=== PATIENT | female | born 1960 | race Caucasian/White ===

== ENCOUNTER 2019-10-09 15:17 | Emergency (ER) | payer MEDICARE, MEDICAID, OTHER ==
--- OUTSIDE RECORDS SUMMARY | 2019-10-09 15:29 | XMS REPORT | Continuity of Care Document ---
:1960 External Reference #:[id number] Author Name Tiffanie Moody M.D., R.D. (transmitted by agent of provider Jessa Hughes) Address [address] [place] [address] Care Team Providers Name Role Phone Harry Kim MD - Ophthalmology Care Team Information Supervisor Curing Room [facility] - Care Team Information Supervisor Curing Room Neurology Cody Clemente - Counseling Care Team Information Supervisor Curing Room [phone] [facility] Neurology Dept - Care Team Information Supervisor Curing Room [phone] Neurology Nae Roger - Drive In Teller Care Team Information Supervisor Curing Room [phone] Jessa Rodriguez MD - Ophthalmology Care Team Information Supervisor Curing Room Problems Active Problems Provider Date Cobalamin deficiency MARIOLA Jade Onset: 08/24/2013 Abnormal results function studies of MARIOLA Quigley Onset: 08/24/2013 central nervous system Concussion injury of brain MARIOLA Quigley Onset: 08/24/2013 Neck pain MARIOLA Quigley Onset: 08/24/2013 Social History Type Date Description Comments Sex Unknown Tobacco Use Start: Unknown Never Smoked Cigarettes ETOH Use Denies alcohol use Recreational Drug Use Denies Drug Use Tobacco Use Start: Unknown Patient has never smoked Smoking Status Reviewed: 09/28/19 Patient has never smoked Enjoy Exercising Enjoys exercising As of 10/2016, does not exercise regularly lately. As of 09/2019, she is walking 50-60 minutes daily. Allergies, Adverse Reactions, Alerts Description No Known Drug Allergies Medications Active Medications SIG Qnty Indications Ordering Date Provider Blood Glucose use as directed 1units E16.2 Tiffanie Grayauley, 05/17/2017 Monitoring System dx: e16.2 M.D., R.D. W/Device Kit Blood Glucose Test use as directed 100units Tiffanie Burnsley, 05/17/2017 to test blood M.D., R.D. Strips glucose twice daily dx: e16.2 Lancets Ultra Thin use to test blood 100units Tiffanie Fransisco, 05/17/2017 30G sugars twice M.D., R.D. Thin 30G Misc daily and as needed dx: e16.2 Acupuncture for vertigo, H81.10 Tiffanie Moody, 04/30/2017 tinnitus and neck M.Silviano., R.D. pain and headaches Vitamin D3 Tiffanie Fransisco, 09/16/2016 1000Unit [place].Jorge Luis, R.D. Chewtabs Acupuncture For ptsd and Tiffanie Moody, 09/16/2016 headaches from M.Silviano., R.D. Traumatic Brain Injury Acupuncture For Tiffanie Burnsley, 09/25/2015 Headache And Back M.Jorge Luis, R.D. Pain Vitamin B-12 Shawnti R. 12/24/2012 2500mcg Storm, RESIDENT ASSOCIATE-C Tablets Sub Multi For Her Shawnti R. 12/23/2012 Storm, RESIDENT ASSOCIATE-C Capsules [place] 3 1 po bid Shawnti R. 12/23/2012 1000mg Storm, RESIDENT ASSOCIATE-C Capsules Echinacea 1 drop every day Unknown Astragalus 1 ml drop by Unknown mouth every day Immunizations CPT Code Status Date Vaccine Lot # [id number] Given 08/08/2019 Influenza Virus Vaccine, Quadrivalent, 3 Yr > [id number] Quad, Preserv Free 34782 Given 06/07/2006 Tetanus [id number] 96133 Given 04/19/1997 Tetanus [id number] Refused 04/28/2019 Influenza Virus Vaccine, Quadrivalent, 3 Yr > Quad , Preserv Free [id number] Refused 06/09/2017 Influenza Virus Vaccine, Quadrivalent, 3 Yr > Quad , Preserv Free [id number] Refused 10/23/2016 Influenza Virus Vaccine, Quadrivalent, 3 Yr > Quad , Preserv Free Vital Signs Date Vital Result Comment 10/05/2019 10:22am Weight 188.00 lb Weight 85.277 kg BP Systolic 100 mmHg BP Diastolic 70 mmHg Heart Rate 93 /min Body Temperature 98.0 F Respiratory Rate 16 /min O2 % BldC Oximetry 98 % 09/28/2019 10:23am Weight 185.00 lb Weight 83.916 kg BP Systolic 102 mmHg BP Diastolic 60 mmHg Heart Rate 89 /min Body Temperature 96.6 F Respiratory Rate 16 /min Height 67.5 inches 5'7.50" BMI (Body Mass Index) 28.5 kg/m2 O2 % BldC Oximetry 100 % Results Test Acquired Date Facility Test Result H/L Range Note CBC Auto 09/28/2019 [facility] White Blood 3.6 10^3/ uL Normal 3.5-10.8 Diff [phone] Count Red Blood Count 4.49 10^6/uL Normal 3.70-4.87 Hemoglobin 13.3 g/dL Normal 12.0-16.0 Hematocrit 40 % Normal 35-47 Mean Corpuscular Volume 89 fL Normal 80-97 Mean Corpuscular Hemoglobin 30 pg Normal 27-31 Mean Corpuscular HGB Conc 33 g/dL Normal 31-36 Red Cell Distribution Width 13 % Normal 10-15 Platelet Count 193 10^3/uL Normal 150-450 Mean Platelet Volume 10.5 fL High 7.4-10.4 Abs Neutrophils 2.1 10^3/uL Normal 1.5-7.7 Abs Lymphocytes 1.0 10^3/uL Normal 1.0-4.8 Abs Monocytes 0.3 10^3/uL Normal 0-0.8 Abs Eosinophils 0.1 10^3/uL Normal 0-0.6 Abs Basophils 0.0 10^3/uL Normal 0-0.2 Abs Nucleated RBC 0.0 10^3/uL Granulocyte % 59.0 % Lymphocyte % 28.9 % Monocyte % 8.8 % Eosinophil % 2.3 % Basophil % 1.0 % Nucleated Red Blood Cells % 0.2 Lipid Profile 09/28/2019 [facility] Triglycerides 79 mg/dL 1 (Trig/Chol/HDL) [phone] Cholesterol 248 mg/dL 2 HDL Cholesterol 59.9 mg/dL 3 LDL Cholesterol 172 mg/dL 4 Comp Metabolic 09/28/2019 [facility] Sodium 141 mmol/ L Normal 135-145 Panel [phone] Potassium 4.4 mmol/L Normal 3.5-5.0 Chloride 105 mmol/L Normal 101-111 Co2 Carbon Dioxide 29 mmol/L Normal 22-32 Anion Gap 7 mmol/L Normal 2-11 Glucose 83 mg/dL Normal 70-100 Blood Urea Nitrogen 10 mg/dL Normal 6-24 Creatinine 1.06 mg/dL High 0.51-0.95 BUN/Creatinine Ratio 9.4 Normal 8-20 Calcium 9.3 mg/dL Normal 8.6-10.3 Total Protein 7.1 g/dL Normal 6.4-8.9 Albumin 4.6 g/dL Normal 3.2-5.2 Globulin 2.5 g/dL Normal 2-4 Albumin/Globulin Ratio 1.8 Normal 1-3 Total Bilirubin 0.50 mg/dL Normal 0.2-1.0 Alkaline Phosphatase 87 U/L Normal 34-104 Alt 11 U/L Normal 7-52 Ast 15 U/L Normal 13-39 Egfr Non- 53.1 >60 Egfr 64.2 >60 5 Laboratory test 09/28/2019 [facility] Vitamin B12 377 pg/mL Normal 180-914 6 finding [phone] Vitamin D Total 25(Oh) 24.3 ng/mL Normal 20-50 7 Food Allergy 04/14/2019 [facility] Egg White <0.35 kU /L 8 Panel [phone] Allergen IgE [place] Allergen IgE 1.03 kU/L 9 Egg Yolk Allergen IgE <0.35 kU/L 10 Cow's Milk Allergen IgE <0.35 kU/L 11 Peanut Allergen IgE 1.48 kU/L 12 Soybean Allergen IgE 1.00 kU/L 13 Wheat Allergen IgE 1.17 kU/L 14 Laboratory test 04/14/2019 [facility] Rast [place] 1.18 kU/L 15 finding [phone] Seed Rast Sesame Seed 1.46 kU/L 16 Miscellaneous Test See Comment 17 Laboratory test finding 04/10/2019 In House Lab Lead low [phone] Desirable: <150 Borderline High: 150-199 High: 200-499 Very High: >500 2 Desirable: <200 Borderline High: 200-239 High: >239 3 Low: <40 Desirable: 40-60 High: >60 4 Desirable: <100 Near Optimal: 100-129 Borderline High: 130-159 High: 160-189 Very High: >189 5 Because ethnic data is not always readily available, this report includes an eGFR for both -Americans and non- Americans. The National Kidney Disease Education Program (NKDEP) does not endorse the use of the MDRD equation for patients that are not between the ages of 18 and 70, are , have extremes of body size, muscle mass, or nutritional status, or are non- or non-. According to the National Kidney Foundation, irrespective of diagnosis, the stage of the disease is based on the level of kidney function: Stage Description GFR(mL/min/1.73 m(2)) 1 Kidney damage with normal or decreased GFR 90 2 Kidney damage with mild decrease in GFR 60-89 3 Moderate decrease in GFR 30-59 4 Severe decrease in GFR 15-29 5 Kidney failure <15 (or dialysis) 6 Normal Range 180 to 914 Indeterminate Range 145 to 180 Deficient Range <145 7 Total 25-Hydroxyvitamin D2 and D3 (25-OH-VitD) <10 ng/mL (severe deficiency) 10-19 ng/mL (mild to moderate deficiency) 20-50 ng/mL (optimum levels) 51-80 ng/mL (increased risk of hypercalciuria) >80 ng/mL (toxicity possible) 8 Class 0 (Negative <0.35) 9 Class 2 (Positive 0.70-3.49) 10 Class 0 (Negative <0.35) 11 Class 0 (Negative <0.35) 12 Class 2 (Positive 0.70-3.49) 13 Class 2 (Positive 0.70-3.49) 14 Class 2 (Positive 0.70-3.49) Test Performed by: [place] [address] [facility]: Cody Brar M.D. Ph.D.; CLIA# [id number] 15 Class 2 (Positive 0.70-3.49) Test Performed by: [place] [address] [facility]: Cody Brar M.D. Ph.D.; CLIA# [id number] 16 Class 2 (Positive 0.70-3.49) Test Performed by: [facility] [place] [address] Manager [facility]: Cody Brar M.D. Ph.D.; CLIA# [id number] 17 Test Result Flag Unit RefValue Food-Grain Panel 1.19 kU/L Class 2 (Positive 0.70-3.49) ADDITIONAL INFORMATION Food - Grain Panel: Wheat [place] Barley Rice Test Performed by: [facility] [place] [address] Manager [facility]: Cody Brar M.D. Ph.D.; CLIA# [id number] Procedures Description No Information Available Medical Devices Description No Information Available Encounters Type Date Location Provider Dx Diagnosis Office Visit 10/05/2019 Charles Moody, E78.5 Hyperlipidemia, 10:15a Cyril, R.DSaurabh unspecified R79.89 Other specified abnormal findings of blood chemistry Z91.018 Allergy to other foods Office Visit 09/28/2019 10:15a Charles Moody Z00.00 Encntr for Cyril, R.DSaurabh general adult medical exam w/o abnormal findings R20.0 Anesthesia of skin D51.9 Vitamin B12 deficiency anemia, unspecified E55.9 Vitamin D deficiency, unspecified Office Visit 04/28/2019 1:45p Charles Moody Z91.018 Allergy to Cyril R.DSaurabh other foods R09.81 Nasal congestion R19.7 Diarrhea, unspecified Office Visit 04/14/2019 10:15a Charles Moody R09.81 Nasal congestion Cyril, R.DSaurabh R19.7 Diarrhea, unspecified R42 Dizziness and giddiness Assessments Date Code Description Provider 10/05/2019 E78.5 Hyperlipidemia, unspecified Tiffanie Moody M.D., R.D. 10/05/2019 R79.89 Other specified abnormal findings of Tiffanie Moody M.D. , R.D. blood chemistry 10/05/2019 Z91.018 Allergy to other foods Tiffanie Moody M.D., R.D. 09/28/2019 Z00.00 Encounter for general adult medical Tiffanie Moody M.D., R.D. examination without abnormal findings 09/28/2019 R20.0 Anesthesia of skin Tiffanie Moody M.D., R.D. 09/28/2019 D51.9 Vitamin B12 deficiency anemia, Tiffanie Moody M.D., R.D. unspecified 09/28/2019 E55.9 Vitamin D deficiency, unspecified Tiffanie Moody M.D., R.D. 08/08/2019 Z23 Encounter for immunization Tiffanie Moody M.D., R.D. 04/28/2019 Z91.018 Allergy to other foods Tiffanie Moody M.D., R.D. 04/28/2019 R09.81 Nasal congestion Tiffanie Moody M.D., R.D. 04/28/2019 R19.7 Diarrhea, unspecified Tiffanie Moody M.D., R.D. 04/14/2019 R09.81 Nasal congestion Tiffanie Moody M.D., R.D. 04/14/2019 R19.7 Diarrhea, unspecified Tiffanie Moody M.D., R.D. 04/14/2019 R42 Dizziness and giddiness Tiffanie Moody M.D., R.D. 04/10/2019 Z13.88 Encntr screen for disorder due to Tiffanie Moody M.D., R.DSaurabh exposure to contaminants 04/10/2019 Z13.88 Encounter for screening for disorder [facility] due to exposure to contaminants Plan of Treatment No Information Available Functional Status Description No Information Available Mental Status Description No Information Available Referrals Refer to Dr Reason for Referral Status Appt Nellie Dover MD REFERRAL TO: [facility]OD Created 00/00 /0000 ALLERGIES, ENVIRONMENTAL ALLERGIES PLEASE CONTACT PT TO SCHEDULE APPT. PLEASE FAX APPOINTMENT DATE/TIME TO [facility] @ [phone]. PLEASE SEND CONSULT NOTE TO [facility] @ [phone]. [address] [place] [address] [phone]
--- OUTSIDE RECORDS SUMMARY | 2019-10-09 15:29 | XMS REPORT | Continuity of Care Document ---
:1960 External Reference #:[id number] Author Name Tiffanie Moody M.D., R.D. (transmitted by agent of provider Jessa Hughes) Address [address] [place] [address] Care Team Providers Name Role Phone Harry Kim MD - Ophthalmology Care Team Information Hospital Clinic Assistant [facility] - Care Team Information Hospital Clinic Assistant Neurology Cody Clemente - Counseling Care Team Information Hospital Clinic Assistant [phone] [facility] Neurology Dept - Care Team Information Hospital Clinic Assistant [phone] Neurology Nae Roger - Bat Lathe Operator Care Team Information Hospital Clinic Assistant [phone] Jessa Rodriguez MD - Ophthalmology Care Team Information Hospital Clinic Assistant Problems Active Problems Provider Date Cobalamin deficiency [...] Vitamin B-12 Shawnti R. 12/24/2012 2500mcg Storm, MACHINE GROUP LEADER-C Tablets Sub Multi For Her Shawnti R. 12/23/2012 Storm, MACHINE GROUP LEADER-C Capsules [place] 3 1 po bid Shawnti R. 12/23/2012 1000mg Storm, MACHINE GROUP LEADER-C Capsules Echinacea 1 drop every day Unknown Astragalus 1 ml drop by Unknown mouth every day Immunizations CPT Code Status Date Vaccine Lot # [id number] Given 08/08/2019 Influenza Virus Vaccine, Quadrivalent, 3 Yr > [id number] Quad, Preserv Free 07130 Given 06/07/2006 Tetanus [id number] Given 04/19/1997 Tetanus 55972 Refused 04/28/2019 Influenza Virus Vaccine, Quadrivalent, 3 Yr > Quad , Preserv Free 85546 Refused 06/09/2017 Influenza Virus Vaccine, Quadrivalent, 3 Yr > Quad , Preserv Free [id number] Refused 10/23/2016 Influenza Virus Vaccine, Quadrivalent, 3 [...] Result H/L Range Note CBC Auto 09/28/2019 [facility] White Blood 3.6 10^3/ uL Normal 3.5-10.8 Diff [phone] Count Red Blood Count 4.49 10^6/uL Normal [...] Blood Cells % 0.2 Lipid Profile 09/28/2019 [facility] Triglycerides 79 mg/dL 1 (Trig/Chol/HDL) [phone] Cholesterol 248 mg/dL 2 HDL Cholesterol 59.9 mg/dL 3 LDL Cholesterol 172 mg/dL 4 Comp Metabolic 09/28/2019 [facility] Sodium 141 mmol/ L Normal 135-145 Panel [phone] Potassium 4.4 mmol/L Normal 3.5-5.0 Chloride 105 [...] Egfr 64.2 >60 5 Laboratory test 09/28/2019 [facility] Vitamin B12 377 pg/mL Normal 180-914 6 finding [phone] Vitamin D Total 25(Oh) 24.3 ng/mL Normal 20-50 7 Food Allergy 04/14/2019 [facility] Egg White <0.35 kU /L 8 Panel [phone] Allergen IgE [place] Allergen IgE 1.03 kU/L 9 Egg Yolk Allergen IgE <0.35 kU/L 10 Cow's Milk Allergen IgE <0.35 kU/L 11 Peanut Allergen IgE 1.48 kU/L 12 Soybean Allergen IgE 1.00 kU/L 13 Wheat Allergen IgE 1.17 kU/L 14 Laboratory test 04/14/2019 [facility] Rast [place] 1.18 kU/L 15 finding [phone] Seed Rast Sesame Seed 1.46 kU/L 16 [...] Class 2 (Positive 0.70-3.49) Test Performed by: [place] [address] Celebrity Chef Entrepreneur Media Personality: Cody Brar M.D. Ph.D.; CLIA# [id number] 15 Class 2 (Positive 0.70-3.49) Test Performed by: [place] [address] Celebrity Chef Entrepreneur Media Personality: Cody Brar M.D. Ph.D.; CLIA# [id number] 16 Class 2 (Positive 0.70-3.49) Test Performed by: [facility] [place] [address] Celebrity Chef Entrepreneur Media Personality: Cody Brar M.D. Ph.D.; CLIA# [id number] 17 Test Result Flag Unit RefValue Food-Grain Panel 1.19 kU/L Class 2 (Positive 0.70-3.49) ADDITIONAL INFORMATION Food - Grain Panel: Wheat [place] Barley Rice Test Performed by: [facility] [place] [address] Celebrity Chef Entrepreneur Media Personality: Cody Brar M.D. Ph.D.; CLIA# [id number] Procedures Description No Information Available Medical Devices Description No Information Available Encounters Type Date Location Provider Dx Diagnosis Office Visit 09/28/2019 Charles Moody, Z00.00 Encntr for general 10:15a Cyrli RIam. adult medical exam w/o abnormal findings R20.0 Anesthesia of skin D51.9 Vitamin B12 deficiency anemia, unspecified E55.9 Vitamin D deficiency, unspecified Office Visit 04/28/2019 1:45p Charles Moody, Z91.018 Allergy to M.Jorge Luis, R.D. other foods R09.81 Nasal congestion R19.7 Diarrhea, unspecified Office Visit 04/14/2019 10:15a Charles Moody R09.81 Nasal congestion Cyril, R.D. R19.7 Diarrhea, unspecified R42 Dizziness and giddiness [...] R.D. 04/14/2019 R42 Dizziness and giddiness Tiffanie oMody M.D., R.D. 04/10/2019 Z13.88 Encntr screen for disorder due to Tiffanie Moody M.D., R.D. exposure to contaminants 04/10/2019 Z13.88 Encounter for screening for disorder [facility] due to exposure to contaminants Plan of Treatment No Information Available Functional Status Description No Information Available Mental Status Description No Information Available Referrals Refer to Dr Reason for Referral Status Appt Date Nellie Oneal MD REFERRAL TO: [facility] FOR FOOD Created ALLERGIES, ENVIRONMENTAL ALLERGIES PLEASE CONTACT PT TO SCHEDULE APPT. PLEASE FAX APPOINTMENT DATE/TIME TO [facility] @ [phone]. PLEASE SEND CONSULT NOTE TO [facility] @ [phone]. [address] [place] [address] [phone]
[2019-10-09 15:43] VITALS: BP 113/72
--- NOTE | 2019-10-09 16:10 | UC ---
Upper Extremity HPI - HPI Summary HPI Summary: 58-year-old white female presents with acute right rotator cuff strain after trying to move a wheelchair 3 days ago by herself. Patient denies acute injury or fall but became progressively worse after day 3, and currently is unable to function at her job due to severe range of motion deficits secondary to pain. Denies numbness and tingling. Patient has history of tearing left rotator cuff muscle in the past, but denies injuring right shoulder. - History of Current Complaint Chief Complaint: UCTrauma Stated Complaint: SHOULDER INJURY Time Seen by Provider: 10/09/19 15:46 Hx Obtained From: Patient Onset/Duration: Sudden Onset Severity Initially: Severe Severity Currently: Severe Pain Intensity: 7 - Allergies/Home Medications Allergies/Adverse Reactions: Allergies Allergy/AdvReac Type Severity Reaction Status Date / Time No Known Allergies Allergy Verified 10/09/19 15:44 Home Medications: Home Medications Naproxen [Naproxen 500 mg tab] 500 mg PO BID 10 Days #20 tablet 10/09/19 [Rx] Oxycodone HCl/Acetaminophen [Percocet 5-325 mg Tablet] 1 each PO BID PRN 3 Days #6 tablet MDD 2 10/09/19 [Rx] PMH/Surg Hx/FS Hx/Imm Hx Previously Healthy: Yes - Surgical History Surgical History: Yes Surgery Procedure, Year, and Place: REMOVAL OF SOFT TISSUE MASS LEFT EYEBROW AT 1 YRS OF AGE - Family History Known Family History: Positive: Non-Contributory Negative: Cardiac Disease, Hypertension, Diabetes - Social History Alcohol Use: None Substance Use Type: None Smoking Status (MU): Never Smoked Tobacco Review of Systems All Other Systems Reviewed And Are Negative: Yes Constitutional: Positive: Negative Eyes: Positive: Negative Respiratory: Positive: Negative Cardiovascular: Positive: Negative Gastrointestinal: Positive: Negative Genitourinary: Positive: Negative Neurovascular: Positive: Negative Musculoskeletal: Positive: Decreased ROM - right shoulder Physical Exam - Summary Physical Exam Summary: Vital Signs Reviewed: Yes Eye Exam: Normal Eyes: Positive: Conjunctiva Clear ENT: Positive: Normal ENT inspection Neck: Positive: Supple Respiratory Exam: Normal Respiratory: Positive: Lungs clear, Normal breath sounds. Negative: Crackles, Rhonchi, Stridor, Wheezing Cardiovascular Exam: Normal, RRR, S1, S2 Abdomen: NT/ND Musculoskeletal Exam: ROM limited to 15 of frontal and horizontal abduction and trouble initiating abduction, neg numbness and tingling Neurological Exam: Normal Psychological Exam: Normal Skin Exam: Normal Triage Information Reviewed: Yes Vital Signs: Initial Vital Signs Temp 36.8 C 10/09/19 15:40 Pulse 93 10/09/19 15:40 Resp 18 10/09/19 15:40 BP 113/72 10/09/19 15:40 Pulse Ox 97 10/09/19 15:40 Upper Extremity Course/Dx - Differential Dx/Diagnosis Provider Diagnosis: Strain of right rotator cuff capsule Discharge ED - Sign-Out/Discharge Documenting (check all that apply): Patient Departure All imaging exams completed and their final reports reviewed: Yes - Discharge Plan Condition: Stable Disposition: HOME Prescriptions: Naproxen [Naproxen 500 mg tab] 500 mg PO BID 10 Days #20 tablet Oxycodone HCl/Acetaminophen [Percocet 5-325 mg Tablet] 1 each PO BID PRN 3 Days #6 tablet MDD 2 PRN Reason: Pain - Severe Patient Education Materials: Rotator Cuff Injury (ED), Rotator Cuff Tendinitis (ED) Referrals: Tiffanie Sanchez MD [Primary Care Provider] - Terrell Erickson MD [Medical Doctor] - Additional Instructions: follow up with PCP and/or orthopedics for MRI and for further work up. - Billing Disposition and Condition Condition: STABLE Disposition: Home
== END 2019-10-09 17:15 | disposition home or self-care (01) ==
LOC: UCEAST 15:17
DX: S46.011A Strain of muscle(s) and tendon(s) of the rotator cuff of right shoulder, initial encounter (principal); X58.XXXA Exposure to other specified factors, initial encounter; Y92.9 Unspecified place or not applicable
CPT/HCPCS: 99212; G0463